=== PATIENT | male | born 1990 | race Caucasian/White ===

== ENCOUNTER 2017-12-10 21:51 | Emergency (ER) | payer OTHER, SELFPAY ==
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
== END 2017-12-10 22:41 ==
LOC: EDBD 21:51 → NAV ERS 21:51
DX: M54.2 Cervicalgia (principal); R51 Headache; V69.9XXA Occupant (driver) (passenger) of heavy transport vehicle injured in unspecified traffic accident, initial encounter
CPT/HCPCS: 70450; 72125